=== PATIENT | male | born 1965 | race Caucasian/White ===

== ENCOUNTER 2023-03-17 14:30 | Inpatient (IN) | payer OTHER ==
[2023-03-17 14:50] VITALS: BMI 18.3
[2023-03-17] MEDS ORDERED: POLYETHYLENE GLYCOL (HEALTHYLAX) 3350 17 GM PACKET PO PRN (16:46)
[2023-03-17] MEDS ORDERED: BENZONATATE 200 MG CAPSULE PO PRN (16:46)
[2023-03-17] MEDS ORDERED: ACETAMINOPHEN 325 MG TABLET (FP) PO PRN (16:46)
[2023-03-17] MEDS ORDERED: MAG HYDROX/AL HYDROX/SIMETH 30 ML UNIT-DOSE CUP PO PRN (16:46)
[2023-03-17] MEDS ORDERED: methaDONE HCL 10 MG TABLET (FOR DETOX USE ONLY) PO ONE (16:46)
[2023-03-17] MEDS ORDERED: LOPERAMIDE HCL 2 MG CAPSULE PO PRN (16:46)
[2023-03-17] MEDS ORDERED: ONDANSETRON *ODT* 4 MG TABLET SL PRN (16:46)
[2023-03-17] MEDS ORDERED: NALOXONE HCL (KLOXXADO) 8 MG SPRAY NS PRN (16:46)
[2023-03-17] MEDS ORDERED: MAGNESIUM HYDROX 2400MG/30ML ORAL SUSPENSION 30 ML CUP PO PRN (16:46)
[2023-03-17] MEDS ORDERED: guaiFENesin 600 MG TABLET.ER (FP) PO PRN (16:46)
[2023-03-17] MEDS ORDERED: BISMUTH SUBSALICYLATE 524 MG/30 ML PO PRN (16:46)
[2023-03-17] MEDS ORDERED: IBUPROFEN 600 MG TABLET (FP) PO PRN (16:46)
[2023-03-17] MEDS ORDERED: BENZOCAINE/MENTHOL (CHLORASEPTIC ) LOZENGE MM PRN (16:46)
[2023-03-17] MEDS ORDERED: NALOXONE HCL 0.4 MG/ML VIAL IM PRN (16:46)
[2023-03-17] MEDS ORDERED: DICYCLOMINE HCL 10 MG CAPSULE PO PRN (16:46)
[2023-03-17] MEDS ORDERED: NICOTINE 10 MG CARTRIDGE (INHALER) IH PRN (16:46)
[2023-03-17] MEDS ORDERED: IBUPROFEN 400 MG TABLET (FP) PO PRN (16:46)
[2023-03-17] MEDS ORDERED: methaDONE HCL 10 MG TABLET (FOR DETOX USE ONLY) ONE (18:42)
[2023-03-18] MEDS: THIAMINE HCL 100 MG TABLET (FP) PO SCH ×2 (05:08→21:56)
[2023-03-18] MEDS: MELATONIN 5 MG TABLETS PO SCH ×2 (05:08→21:56)
[2023-03-18] MEDS: cloNIDine HCL 0.1 MG TABLET PO PRN ×3 (05:19→21:55)
[2023-03-18] MEDS: AMOX TR/POT CLAV 875MG/125MG TABLETS (FP) PO SCH ×2 (07:09→17:53)
[2023-03-18] MEDS: PRENATAL VITAMINS W/ FOLIC ACID TABLET (FP) PO SCH (10:02)
[2023-03-18 10:45] LABS: HEMATOCRIT 34.6 % (35.4-49); HEMOGLOBIN 11.7 GM/dL (11.7-16.9); MCH 29.4 pg (25.7-33.7); MCHC 33.8 g/dl (32.0-35.9); MEAN CELL VOLUME 86.8 fl (80-96); MEAN PLT VOLUME 7.6 fl (7.5-11.1); PLATELET COUNT 240 10^3/uL (134-434); RBC 3.98 M/mm3 (4.00-5.60); RDW 14.1 % (11.9-15.9); WHITE BLOOD COUNT 5.3 K/mm3 (4.0-10.0)
[2023-03-18 10:48] LABS: POTASSIUM 4.6 mmol/L (3.5-5.1)
[2023-03-18 10:51] LABS: BLOOD UREA NITROGEN 14.8 mg/dL (7-18); CALCIUM 8.8 mg/dL (8.5-10.1)
[2023-03-18 10:55] LABS: BILIRUBIN,TOTAL 0.9 mg/dL (0.2-1); CREATININE 0.4 mg/dL (0.55-1.3); TOT PROT 6.3 g/dl (6.4-8.2)
[2023-03-18 12:44] LABS: SYPHILIS W/ RPR CONF NON-REACTIVE (NONREACTIVE)
[2023-03-18] MEDS: METHOCARBAMOL 500 MG TABLET PO PRN ×2 (15:04→21:56)
[2023-03-18] MEDS: hydrOXYzine PAMOATE 25 MG CAPSULE (FP) PO PRN (15:04)
[2023-03-19] MEDS: METHOCARBAMOL 500 MG TABLET PO PRN ×2 (05:41→22:15)
[2023-03-19] MEDS: cloNIDine HCL 0.1 MG TABLET PO PRN (05:41)
[2023-03-19] MEDS: AMOX TR/POT CLAV 875MG/125MG TABLETS (FP) PO SCH ×2 (07:44→17:25)
[2023-03-19] MEDS ORDERED: methaDONE HCL 10 MG TABLET (FOR DETOX USE ONLY) PO ONE (10:00)
[2023-03-19] MEDS: PRENATAL VITAMINS W/ FOLIC ACID TABLET (FP) PO SCH (10:14)
[2023-03-19] MEDS ORDERED: SODIUM CHLORIDE NASAL SPRAY 44 ML BOTTLE NS PRN (22:00)
[2023-03-19] MEDS: THIAMINE HCL 100 MG TABLET (FP) PO SCH (22:15)
[2023-03-19] MEDS: MELATONIN 5 MG TABLETS PO SCH (22:15)
[2023-03-19] MEDS: hydrOXYzine PAMOATE 25 MG CAPSULE (FP) PO PRN (22:15)
[2023-03-19 22:51] LABS: HIV INTERPRETATION NEGATIVE (NEGATIVE)
[2023-03-20] MEDS: AMOX TR/POT CLAV 875MG/125MG TABLETS (FP) PO SCH (07:38)
[2023-03-20] MEDS: hydrOXYzine PAMOATE 25 MG CAPSULE (FP) PO PRN (10:01)
[2023-03-20] MEDS: METHOCARBAMOL 500 MG TABLET PO PRN (10:01)
[2023-03-20] MEDS: PRENATAL VITAMINS W/ FOLIC ACID TABLET (FP) PO SCH (10:01)
[2023-03-20 11:26] LABS: HEMATOCRIT 41.6 % (35.4-49); HEMOGLOBIN 13.7 GM/dL (11.7-16.9); MCH 28.7 pg (25.7-33.7); MCHC 32.9 g/dl (32.0-35.9); MEAN CELL VOLUME 87.1 fl (80-96); MEAN PLT VOLUME 8.1 fl (7.5-11.1); PLATELET COUNT 286 10^3/uL (134-434); RBC 4.77 M/mm3 (4.00-5.60); RDW 14.1 % (11.9-15.9); WHITE BLOOD COUNT 6.6 K/mm3 (4.0-10.0)
[2023-03-20 11:32] LABS: POTASSIUM 4.8 mmol/L (3.5-5.1)
[2023-03-20 11:33] LABS: CALCIUM 9.5 mg/dL (8.5-10.1)
[2023-03-20 11:34] LABS: BLOOD UREA NITROGEN 14.4 mg/dL (7-18)
[2023-03-20 11:37] LABS: CREATININE 0.5 mg/dL (0.55-1.3)
[2023-03-20 13:04] VITALS: BP 118/69; PULSE 94; RESP 17; TEMP 97.7
[2023-03-20] MEDS ORDERED: LORazepam 2 MG TABLET PO ONE (14:16)
[2023-03-20] MEDS ORDERED: METHOCARBAMOL 500 MG TABLET PO PRN (14:17)
[2023-03-21] MEDS ORDERED: methaDONE HCL 10 MG TABLET (FOR DETOX USE ONLY) PO ONE (10:00)
== END 2023-03-20 16:33 | disposition left against medical advice (07) | DRG 894 ==
LOC: YASAS 14:30 → Y3N 18:42
PROVIDERS: ADMIT Allergy & Immunology; ATTEND Surgery
PROC: HZ2ZZZZ Detoxification Services for Substance Abuse Treatment (ICD-10-PCS; principal; 2023-03-17)
DX: F11.23 Opioid dependence with withdrawal (principal); F14.20 Cocaine dependence, uncomplicated; F17.210 Nicotine dependence, cigarettes, uncomplicated; F41.9 Anxiety disorder, unspecified; F32.A Depression, unspecified; J01.00 Acute maxillary sinusitis, unspecified; M54.50 Low back pain, unspecified; G89.29 Other chronic pain
CPT/HCPCS: 36415; 80048; 80053; 85027; 85651; 86780; 87389; 87635

== ENCOUNTER 2023-03-17 20:08 | Emergency (ER) | payer OTHER ==
[2023-03-17 20:32] VITALS: TEMP 97.7; BMI 18.1
[2023-03-17 21:37] LABS: BASO % 0.6 % (0-2.0); EOS % 3.8 % (0-4.5); HEMATOCRIT 33.2 % (35.4-49); LYMPH % 16.7 % (8-40); MCHC 33.2 g/dl (32.0-35.9); MEAN CELL VOLUME 87.2 fl (80-96); MEAN PLT VOLUME 7.2 fl (7.5-11.1); NEUT % 67.9 % (42.8-82.8); PLATELET COUNT 226 10^3/uL (134-434); RBC 3.81 M/mm3 (4.00-5.60); RDW 14.5 % (11.9-15.9); WHITE BLOOD COUNT 6.7 K/mm3 (4.0-10.0)
[2023-03-17 21:44] LABS: INR 1.05 (0.83-1.09); PROTHROMBIN TIME (PATIENT) 12.2 SEC (9.7-13.0)
[2023-03-17 21:47] LABS: ACTIVATED PTT 30.8 SECONDS (25.2-36.5)
[2023-03-17 22:01] LABS: POTASSIUM 4.8 mmol/L (3.5-5.1)
[2023-03-17 22:03] LABS: BLOOD UREA NITROGEN 17.7 mg/dL (7-18); CALCIUM 8.6 mg/dL (8.5-10.1)
[2023-03-17 22:07] LABS: CREATININE 0.4 mg/dL (0.55-1.3); PHOSPHOROUS 3.4 mg/dL (2.5-4.9)
[2023-03-17 22:08] LABS: BILIRUBIN,TOTAL 0.3 mg/dL (0.2-1); TOT PROT 6.5 g/dl (6.4-8.2)
[2023-03-18 04:17] VITALS: BP 145/77; PULSE 88; RESP 16
== END 2023-03-18 04:20 | disposition home or self-care (01) ==
LOC: JER 20:08
DX: J01.00 Acute maxillary sinusitis, unspecified (principal); R93.2 Abnormal findings on diagnostic imaging of liver and biliary tract; F14.10 Cocaine abuse, uncomplicated; R53.1 Weakness; R63.4 Abnormal weight loss
CPT/HCPCS: 36415; 70450-TC; 70486-TC; 71260-TC; 74177-TC; 80053; 83735; 84100; 84484; 85025; 85610; 85730; 93005; 93010; 99285-25; Q9967